=== PATIENT | female | born 1995 | race Caucasian/White ===

== ENCOUNTER 2017-03-29 07:25 | Inpatient (IN) ==
[2017-03-29 04:50] LABS: Bilirubin,Urine Negative (Negative); Blood,Urine Negative (Negative); Clarity,Urine Turbid (Clear); Color,Urine Yellow (Yellow); Glucose,Urine (UA) Normal (Normal); Ketones,Urine Negative (Negative); Leukocyte Esterase,Urine Negative (Negative); Nitrite,Urine Negative (Negative); PH,Urine 7.5 pH Units (5.0-8.0); Protein,Urine Negative (Neg-Trace); Specific Gravity,Urine 1.019 (1.010-1.025); Urobilinogen,Urine Normal (Normal)
[2017-03-29 04:52] LABS: Bacteria,Urine Many per hpf (None-Few); Hyaline Casts,Urine Few per lpf (None-Few); RBC,Urine 0-3 per hpf (0-3); Squamous Epithelial Cell,Urine Many per lpf (None-Few)
[2017-03-29 04:57] LABS: Amphetamine Screen,Urine Negative ng/mL (Cutoff=1000); Barbiturate Screen,Urine Negative ng/mL (Cutoff=200); Benzodiazepines Screen,Urine Negative ng/mL (Cutoff=200); Cannabinoid Screen,Urine Negative ng/mL (Cutoff = 50); Cocaine Screen,Urine Negative ng/mL (Cutoff= 300); Opiate Screen,Urine Negative ng/mL (Cutoff=300); Phencyclidine Screen,Urine Negative ng/mL (Cutoff=25)
[2017-03-29 05:29] LABS: Amorphous Sediment,Urine Moderate (Few)
--- NOTE | 2017-03-29 07:02 | OB/GYN History & Physical ---
Date of Encounter: 03/29/17 Time of Encounter: 06:54 Assessment and Plan (1) 39 weeks gestation of Current visit: Yes Status: Acute Admit for delivery epidural when desires History of Present Illness Chief complaint: Spontaneous Labor at 39 weeks gestation HPI: Ms. Rodas is a 21 year old female at 39w0d presents to labor and delivery with c/o contractions that started yesterday around 1999. Patient denies LOF or VB. Patient reports +FM. Blood type: AB+, Rubella: Immune, Hep B: nonreactive, GBS: Negative. Past Med Surg Social Fam HX - Past Medical History Source: patient Medical history: non-contributory Psychiatric history: anxiety, depression - Past Surgical History Surgical History: no surgical history - Social History Smoking Status: Never smoker Smokeless Tobacco Status: No Alcohol use: none Drug use: none Current living situation: Home - Independent Activity Level: Independent ambulation Recent Out of Country Travel Within the Last 8 Weeks: No Exposure or Possible Exposure to Illness During Travel: No - Family History Mother History Unknown: Yes Obstetrical History - Pregnancies : 1 Para: 0 Term: 0 : 0 Ab's: 0 Livin Medications and Allergies Ferrous Sulfate 1 tab PO BID 03/29/17 [History] [place]-3 Fatty Acids [Fish Oil] 1,000 mg PO DAILY 03/29/17 [History] Formula Tablet 1 tab PO DAILY 03/29/17 [History] Prevacid 1 tab PO PRN PRN 03/29/17 [History] 3 Allergy/AdvReac Type Severity Reaction Status Date / Time No Known Allergies Allergy Verified 03/29/17 05:14 Review of System OB - Constitutional Constitutional ROS IM: no fever(s), no headache(s) - Cardiovascular Cardiovascular: no chest pain, no edema, no palpitations, no syncope - Gastrointestinal Gastrointestinal: no diarrhea, no heartburn, no nausea, no vomiting - Genitourinary Genitourinary: no abnormal vaginal bleeding, no urinary incontinence, no vaginal discharge, no vaginal odor, no vaginal pruritis Exam - Constitutional Constitutional: well developed, well nourished, no acute distress, average body habitus - HEENT HEENT: Normocephaly, Mucus Membranes Moist - Neck Neck exam: full ROM, supple - Lungs Respiratory exam: CTAB - Cardiovascular Cardiovascular exam: RRR, +S1, +S2 - Abdomen Abdomen: Present: bowel sounds normal, gravid, non tender - Extremities Extremities exam: full ROM, normal capillary refill, normal inspection Deep Tendon Reflex Grade: 2+ Normal - Cervix Dilation: 5 Effacement: 90 Station: 0 - Uterus Uterus exam: Present: normal size, normal contour - Anus/Rectum Anus/Rectum: Present: normal perianal skin (FHR 140 bpm moderate variability + 15x15 accels no decels noted. Contractions 1-3 min apart. CAt. 1 tracing.) Results Abnormal lab results Urine Clarity Turbid (Clear) A 03/29/17 04:30 Urine Microscopic WBC 3-5 per hpf (0-3) H 03/29/17 04:30 Ur Squamous Epith Cells Many per lpf (None-Few) H 03/29/17 04:30 Amorphous Sediment Moderate (Few) H 03/29/17 04:30 Urine Bacteria Many per hpf (None-Few) H 03/29/17 04:30 All other labs normal. - VTE Reasons for not Prescribing Prophylaxis: Treatment not Indicated - Low risk for VTE
[~2017-03-29 07:25] MED LIST: Famotidine 20 MG/2 ML VIAL IVP PRN; Naloxone 0.4 MG/ML INJ IVP PRN; Ondansetron 4 MG/2 ML VIAL IVP PRN
[2017-03-29] MEDS: Ringers Solution, Lactated 1,000 ML IVC SCH ×2 (07:35→16:33)
[2017-03-29 07:37] LABS: Basophils % 0.2 %; Eosinophils # 0.1 K/mcL (0.0-0.6); Eosinophils % 0.8 %; Hematocrit 34.3 % (35.3-44.9); Hemoglobin 11.3 g/dL (11.5-15.4); Immature Granulocytes % 0.9 % (0-4); Lymphocytes # 2.1 K/mcL (0.6-4.6); Lymphocytes % 12.5 %; Mean Corpuscular HGB Conc 32.9 g/dL (31.6-35.5); Mean Corpuscular Hemoglobin 30.8 pg (28.0-33.3); Mean Corpuscular Volume 93.5 fL (83.0-100.0); Mean Platelet Volume 10.5 fL (9.4-12.4); Monocytes # 1.1 K/mcL (0.0-1.3); Monocytes % 6.7 %; Neutrophils # 13.1 K/mcL (1.6-8.9); Platelet Count 200 K/mcL (140-400); Red Blood Count 3.67 M/mcL (3.82-4.97); Red Cell Distribution Width 12.1 % (11.5-14.5); Segmented Neutrophils % 78.9 %
[2017-03-29] MEDS: *HR* Nalbuphine 20 MG/ML AMPUL IVP PRN ×2 (08:47→18:37)
[2017-03-29] MEDS ORDERED: Bupivacaine-MPF 0.25% 10 ML VIAL ONE ×2 (11:52→18:33)
[2017-03-29] MEDS ORDERED: *HR* FentaNYL (PF) 100 MCG/2 ML VIAL ONE ×3 (11:52→18:33)
[2017-03-29] MEDS ORDERED: Epidural Premix (fent/bupiv) 110 ML EP ONE ×2 (11:52→18:42)
--- NOTE | 2017-03-29 13:32 | Anesthesia Evaluation PreOp ---
Date of Encounter: 03/29/17 Time of Encounter: 11:46 - Past History Planned Operation: labor epidural Cardiac History: Denies any Significant Hx Pulmonary History: Denies Any Significant HX VETERINARY LABORATORY DIAGNOSTICIAN History: Denies Any Significant HX Other Medical History: Denies Any Significant HX Anesthesia History: No Prior Anesthetic Complications (never had general anesthesia. Denies family history of anesthetic problems.) : Yes Alcohol Use: none Drug use: none Medications and Allergies Ferrous Sulfate 1 tab PO BID 03/29/17 [History] [place]-3 Fatty Acids [Fish Oil] 1,000 mg PO DAILY 03/29/17 [History] Formula Tablet 1 tab PO DAILY 03/29/17 [History] Prevacid 1 tab PO PRN PRN 03/29/17 [History] 3 Allergy/AdvReac Type Severity Reaction Status Date / Time No Known Allergies Allergy Verified 03/29/17 05:14 - Meds/Allergy Pre-op Review Medications Reviewed: Yes Allergies Reviewed: Yes Beta Blockers on Current Med List: No Anesthesia Results - Labs 03/29/17 07:30 Anesthesia Exam VSS and FHTs stable Height: 5'7" Weight: 72 kg NPO (# of Hours): >12 Pain Scale: 6 Pain Scale Used: Numeric (1 - 10) - HEENT Pupil (Motor): Pupils equal, EOMI Mallampati: II Teeth: Normal Oral Opening: Greater than 3 - VETERINARY LABORATORY DIAGNOSTICIAN LOC: Oriented VETERINARY LABORATORY DIAGNOSTICIAN Motor: Normal RUE, Normal LUE, Normal RLE, Normal LLE, Normal Face VETERINARY LABORATORY DIAGNOSTICIAN Sensory: Normal: RUE, LUE, RLE, LLE, Face - Cardiac Rhythm: Regular - Pulmonary Breath Sounds: bilateral Clear Respiratory Effort: Symmetrical Anesthesia Assess/Plan ASA Score: 2 Modified Phyllis Scale for Level of Consciousness: Cooperative, oriented, and tranquil Anesthetic Plan: Regional Monitoring Plan: Standard Monitors
--- NOTE | 2017-03-29 13:37 | Anesthesia Procedures ---
Date of Encounter: 03/29/17 Time of Encounter: 11:54 Procedures: Anesthesia - Epidural/Spinal Patient ID/Chart reviewed: Yes Patient examined: Yes OB Eval: : 1 OB Eval: Hx Para: 0 OB Eval: Dilated at (cm): 5 OB Eval: Contractions: Non-stressed pattern Consent Obtained: Yes Supplemental Oxygen: None/Room Air Site Prep: Aseptic Technique, Sterile prep and drape, Povidone-Iodine 1% Patient position: upright Amount of Local Anesthetic used: 4 Touhy Needle Gauge: 18 Touhy Needle Depth (cm): 4 Catheter Depth at Skin (cm): 15 Test Dose (1.5% Lido + Epi): Volume given (mls): 3 Test Dose Result: Negative Loading Dose: 0.25% Marcaine (mls): 8 Loading Dose: Fentanyl (mcg): 100 Loading Dose Administered: Thru Catheter Infusion Med: 0.125% Bupivacaine w/ 2 mcg/ml Fentanyl Infusion Rate (mls/hr): [address]: Tegaderm, Tape Interspace Used: L4-L5 Loss of Resistance (JAMES): Yes Blood: No CSF: No Paresthesia: No Procedure: chose L3-4 initially, prepped, draped, skin wheal raised. Upon entrance into epidural space usinf JAMES technique, noted small bubble and a drop of clear fluid , NO free flow of fluid noted. Removed episural needle and moved down to L4-5, performed same procedure without incident. Vitals + FHT's: VSS throughout procedure, FHTs stable .
--- NOTE | 2017-03-29 13:40 | OB Labor Progress Note ---
Date of Encounter: 03/29/17 Time of Encounter: 13:38 Labor Progress Note - Subjective Subjective: Pt reports she doesn't feel contraction pain. She does report some back discomfort and sharp pains down her right leg. - Heart Tones Heart Tones: Category I - [place]: 2-6 minutes - Plan Plan: AROM when able. Anticipate .
[2017-03-29] MEDS ORDERED: Lidocaine/EPI 1:200k 2% PF 20 ML VIAL ONE (14:44)
--- NOTE | 2017-03-29 15:45 | OB Labor Progress Note ---
Date of Encounter: 03/29/17 Time of Encounter: 15:43 Labor Progress Note - Subjective Subjective: Pt reports some pain on right side. - Cervix Cervix: 6-7/90/1 - Heart Tones Heart Tones: Category I - [place] And[place]: irregular - Interventions Interventions: AROM for small amount clear fluid, IUPC placed. - Plan Plan: Continue to monitor. WIll augment with pitocin if needed. Anticipate .
[2017-03-29] MEDS ORDERED: Oxytocin 20 units/ LR 1000 mL 20 UNIT/1,000 ML BAG IVC SCH (16:00)
[2017-03-29] MEDS ORDERED: Famotidine 20 MG/2 ML VIAL IVP ONE (16:42)
--- NOTE | 2017-03-29 19:26 | Anesthesia Progress Note ---
Date of Encounter: 03/29/17 Time of Encounter: 16:30 Anesthesia Note - Note Note: 03/29/17 19:22 Called to LDR9 for complaints of increasing pain with contractions, 10/10, only on right side of abdomen, right hip and also into right thigh. Patient has been very anxious since placement of epidural that she will feel pain during her labor and delivery. Discussed again the liklihood of the epidural not producing 100% pain relief during labor and delivery . Patient verbalized understanding. Epidural catheter has not migrated and is providing left sided aida n relief. Dosed catheter with 5ml 2% lidocaine with Epi and 100mcg fentanyl in 3 divided doses. Patient tolerated well, VS and FHTs stable throughout.
--- NOTE | 2017-03-29 19:33 | Anesthesia Progress Note ---
Date of Encounter: 03/29/17 Time of Encounter: 18:35 Anesthesia Note - Note Note: 03/29/17 19:27 Called to LDR9 for complaints of 10/10 right sided pain with contractions. Patient reports last redose did not relieve pain. Continues to have pain relief on left side. Patient is 9cm dilated. C/o strong pressure with contractions. Epidural catheter has not migrated, pulled catheter back 2cm, tegaderm and tape dressing reapplied. Dosed catheter with 8ml 0.25% bupivacaine with 100 mcg fentanyl in 3 divided doses. FHTs and VSS throughout. Increased epidural infusion rate to 16ml per hour. Discussed with patient that if this doesn't provide relief, the only option would be to redo epidural. However, since she is 9cm and progressing quickly, I conveyed to her that there likely would not be time to place another catheter and get it working before she was ready to deliver, and that there is always the possibility of the same result. She verbalized understanding and agreeance.
[2017-03-29] MEDS ORDERED: Lidocaine 1% 20 ML MDV ONE (21:35)
--- NOTE | 2017-03-29 22:23 | OB/GYN Procedure Note ---
Delivery - Delivery Date: 03/29/17 Provider: Ary Ozuna (Gianni, PGY1) Intrapartum events: none Delivery induction: none Delivery augmentation: rupture of membranes, pitocin Delivery monitor: external FHT, internal uterine Anesthesia: epidural Estimated Blood Loss: 300 - Infant (s) A Delivery Date: 03/29/17 Delivery Time: 21:48 Presentation: vertex Position: KERRY Route of delivery: Gender: Male Viability: Viable Pounds: 7 Ounces: 3 Weight Gram: 3265 kg at 1 minute: 8 at 5 mins: 9 Shoulder Dystocia: not encountered Specimens collected: cord blood Placenta: spontaneous Cord: 3 umbilical vessels - Repair Episiotomy: none Laceration Description: Perineal - 1st Degree, Labial (hemostatic, superficial) - Complications Delivery complications: none Delivery comments: Pt progressed normally and pushed effectively to for viable male weighing 7lbs. 3oz with apgars 8 at one minute and 9 at five minutes. After pulsations ceased the cord was clamped and cut and the placenta delivered spontaneous and intact. Some uterine atony was noted and methergine was given. EBL 300ml. Mother and baby stable in kangaroo care following procedure. - Disposition Mom disposition: stable in LDR [place] disposition: stable in LDR
[2017-03-30] MEDS ORDERED: Oxytocin 20 units/ LR 1000 mL 20 UNIT/1,000 ML BAG IVC SCH
[2017-03-30] MEDS ORDERED: Measles/Mumps/Rubella Vacc 0.5 ML VIAL SQ PRN
[2017-03-30] MEDS ORDERED: Methylergonovine 0.2 MG/ML AMPUL IM ONE
[2017-03-30] MEDS: Ibuprofen 600 MG TABLET PO PRN ×3 (01:26→20:49)
--- NOTE | 2017-03-30 08:07 | OB/GYN Progress Note ---
Date of Encounter: 03/30/17 Time of Encounter: 08:06 - Assessment and Plan (1) Status post vaginal delivery Current Visit: Yes Status: Acute s/p , PPD#1, patient doing well, cont current inpt care, d/c tomorrow Subjective - Subjective Patient reports: appetite normal, voiding normally, pain well controlled, ambulating normally [place]: doing well Objective - Latest Vital Signs Latest vital signs: Vital Signs Temp Pulse Resp BP Pulse Ox 03/30/17 02:20 99 F 74 16 112/72 98 03/30/17 01:20 98.6 F 62 16 106/61 97 03/29/17 12:20 98.7 F 68 14 108/69 97 Intake and Output 03/29/17 03/30/17 03/30/17 23:59 07:59 15:59 Intake Total 2300 / 2300 Output Total 1300 / 1300 Balance 1000 / 1000 Intake: Oral 300 / 300 Other 2000 / 2000 Output: Urine 1300 / 1300 Other: Weight 70.942 kg Patient Weight 03/30/17 23:59 Weight 70.942 kg - Exam Lungs: bilateral: normal Chest: Normal S1, Normal S2 Extremities: Present: normal Abdomen: Present: normal appearance Uterus: Present: normal
[2017-03-30] MEDS: Prenatal Vit/FA 1 EACH TABLET PO SCH (08:35)
[2017-03-30] MEDS ORDERED: Lanolin 7 G OINT...G. TP PRN (08:42)
[2017-03-30] MEDS: Acetaminophen 325 MG TABLET PO PRN ×2 (16:48→22:02)
[2017-03-31] MEDS: Ibuprofen 600 MG TABLET PO PRN ×2 (02:50→10:52)
[2017-03-31] MEDS: Prenatal Vit/FA 1 EACH TABLET PO SCH (07:46)
[2017-03-31] MEDS: Acetaminophen 325 MG TABLET PO PRN (07:46)
[2017-03-31 08:34] VITALS: BP 100/66
--- NOTE | 2017-03-31 10:13 | Discharge Summary ---
Date of Encounter: 03/31/17 Time of Encounter: 10:11 - Discharge Diagnosis (1) Status post vaginal delivery Priority: Primary Status: Acute Comments: Routine PP care - Discharge Medications Prescriptions: Ibuprofen [Motrin] 600 mg PO Q6HR PRN #40 tablet PRN Reason: Cramping Breast Pump [BREAST PUMP] 1 each .ROUTE AD #1 each Home Medications: Ferrous Sulfate 1 tab PO BID 03/29/17 [History] [place]-3 Fatty Acids [Fish Oil] 1,000 mg PO DAILY 03/29/17 [History] Formula Tablet 1 tab PO DAILY 03/29/17 [History] Prevacid 1 tab PO PRN PRN 03/29/17 [History] Breast Pump [BREAST PUMP] 1 each .ROUTE AD #1 each 03/30/17 [Rx] Ibuprofen [Motrin] 600 mg PO Q6HR PRN #40 tablet 03/31/17 [Rx] Allergies/Adverse Reactions: 3 Allergy/AdvReac Type Severity Reaction Status Date / Time No Known Allergies Allergy Verified 03/29/17 05:14 Data Procedures and tests throughout hospitalization: Laboratory Tests 03/29/17 03/29/17 03/29/17 04:30 04:30 07:30 WBC 16.6 H RBC 3.67 L Hgb 11.3 L Hct 34.3 L MCV 93.5 MCH 30.8 MCHC 32.9 RDW 12.1 Plt Count 200 MPV 10.5 Immature Gran % 0.9 Seg Neutrophils % 78.9 Lymphocytes % 12.5 Monocytes % 6.7 Eosinophils % 0.8 Basophils % 0.2 Neutrophils # 13.1 H Lymphocytes # 2.1 Monocytes # 1.1 Eosinophils # 0.1 Basophils # 0.0 Urine Color Yellow Urine Clarity Turbid A Urine pH 7.5 Ur Specific [place] 1.019 Urine Protein Negative Urine Glucose (UA) Normal Urine Ketones Negative Urine Blood Negative Urine Nitrite Negative Urine Bilirubin Negative Urine Urobilinogen Normal Ur Leukocyte Esterase Negative Urine Microscopic RBC 0-3 Urine Microscopic WBC 3-5 H Ur Squamous Epith Cells Many H Amorphous Sediment Moderate H Urine Bacteria Many H Hyaline Casts Few Ur Culture Indicated? NO Urine Opiates Screen Negative Ur Barbiturates Screen Negative Ur Phencyclidine Scrn Negative Ur Amphetamines Screen Negative U Benzodiazepines Scrn Negative Urine Cocaine Screen Negative U Marijuana (THC) Screen Negative Date of admission: 03/29/17 07:27 Primary care physician: YULY Melo Consults: 03/30/17 00:00 Consult to Actuarial Mathematician [CONS] Routine Comment: Vaginal delivery, consult needed - Patient Status Disposition: Home, Self-Care Condition: Good Functional capacity at discharge: independent ambulation Overall status at discharge: patient is progressing back to baseline - Discharge Instructions Follow Up With: Mitchell Truong MD [Partnered Physician] - - Diet and Activity Activity: resume usual activities as tolerated Diet: advance to your usual diet Hospital Course Reason for admission: active labor Delivery: Episiotomy: none complications: none Discharge diagnosis: IUP at term delivered baby: male Time Attestation: Total time spent providing and/or coordinating discharge services: Time Spent: Less than 30 minutes Exam - Constitutional Vitals: Temp Pulse Resp BP Pulse Ox 98.1 F 62 16 100/66 98 03/31/17 07:35 03/31/17 07:35 03/31/17 07:35 03/31/17 07:35 03/31/17 07:35 General appearance IM: A&O X 3, no acute distress - Respiratory Respiratory exam: Present: CTAB. Absent: respiratory distress - Cardiovascular Cardiovascular exam IM: Present: RRR. Absent: irregular rhythm - GI/Abdominal GI/Abdominal exam IM: normal bowel sounds - Rectal Rectal exam: deferred - Uterine Tone: Firm - Extremities Exam Extremities exam IM: Absent: calf tenderness
[2017-03-31] MEDS ORDERED: Methylergonovine 0.2 MG/ML AMPUL IM ONE (12:55)
== END 2017-03-31 12:56 | disposition home or self-care (01) | DRG 560 ==
LOC: 1NENULAB → 1NENUOBS 23:59
PROVIDERS: ADMIT Advanced Practice Midwife; ATTEND Advanced Practice Midwife